=== PATIENT | male | born 1975 | race Caucasian/White ===

== ENCOUNTER 2024-08-19 09:01 | Inpatient (IN) ==
--- NOTE | 2024-08-19 09:21 | Emergency Department Note ---
Impression & Plan Closed fracture dislocation of left ankle joint ED Provider Note HISTORY OF PRESENT ILLNESS: Patient is a 49-year-old male presenting with left ankle pain and deformity. Patient reports he was walking around his truck in the bad weather when he slipped and fell and he felt his ankle pop and heard a crack. He states that he was unable to bear weight after the accident. He denies striking his head or loss of consciousness. He is not on any anticoagulation. Reports his tetanus is up-to-date. Currently complaining of left ankle pain that he rates a 10 out of 10. Denies any numbness or tingling in the toes. ROS: as above PHYSICAL EXAM: Constitutional: Patient appears in no acute distress. Obese HENT: Head: Normocephalic and atraumatic. Eyes: EOMI, PERRL Mouth/Throat: Mucous membranes moist. Neck: Trachea midline. Neck supple. Cardiovascular: RRR, No murmurs, rubs or gallops. Intact distal pulses. Pulmonary/Chest: No respiratory distress. Breath sounds clear and equal bilaterally. No wheezes or rales. Abdominal: Abdomen soft, no tenderness, rebound or guarding. Musculoskeletal: EXTREMITY= LLE - Deformity: Left ankle has obvious deformity - Skin / Wounds: Diffuse ecchymosis and swelling to the medial part of the ankle. No open wounds - Pain: Ankle is diffusely tender to palpation. - Sensory: SILT throughout (S/S/T/DP/SP nerve distributions) - Motor: Patient is able to wiggle toes. Able to flex and extend at the knee. Unable to range ankle secondary to dislocation. - Vascular: Brisk cap refill, palpable pulses (2+ DP/PT) Skin: Warm and dry. No rash, erythema, pallor or cyanosis Psychiatric: Appropriate mood and affect for situation. Neurological: Alert and keenly responsive. CN II-XII grossly intact, moving all extremities equally and fully. MDM: - Vitals signs showed hypertension. - History obtained via patient. History as above. - Chronic conditions affecting care: HTN - Differential diagnoses include, but are not limited to: ankle fracture; ankle dislocation; contusion; vascular injury - Order placed for continuous cardiac monitoring. At this time, monitor showed rate of 60 bpm with normal sinus rhythm, per my interpretation. - External medical records reviewed. Podiatry office visit note dated 01/19/2024 was reviewed. Patient was seen for an acute blister on his right foot. - Xray left ankle showed bimalleolar fracture and dislocation of ankle, per my interpretation. - Patient initially given 1 mg IV Dilaudid for pain management. He was given an additional 1 mg IV Dilaudid for reduction of his ankle dislocation. Ankle was reduced by myself, please see procedure note below. Splint was applied by myself and zyglo technician. Please see procedure note below. - Laboratory workup interpreted by myself showed normal WBC; stable electrolytes; elevated glucose (175) - Post-reduction x-ray showed improved alignment of patient's bimalleolar fracture and dislocation. - Discussed case with orthopedist longwall headgate operator, Dr. Haji, at 11:11. Reports that patient will need an ORIF or Ex-Fix. Requested the patient be admitted to medicine for blood sugar management. Recommended strict strict elevation and n.p.o. for now. Plan for surgical intervention either later today or tomorrow per surgery. - EKG interpreted by myself showed normal sinus rhythm. Rate 82 bpm. QT 396. No acute ischemic changes. - Preop CXR ordered and negative for obvious pneumonia, per my interpretation. - Discussion was had with case filler about patient's case and need for admission - Hospitalist, Dr. Aranda, consulted for admission - Patient admitted to [facility] for further evaluation and management. PROCEDURES: 1. Ankle Dislocation Reduction Indication: ankle fracture dislocation Verbal consent obtained. Risks and benefits were explained with the usual customary discussion. A time out was taken. Neurovascular examination before the procedure revealed patient able to wiggle toes and intact PT pulse and good cap refill in all 5 toes. The left ankle was reduced by placing the patient's supine and applying countertraction with his knee bent at 90 degrees. Gentle downward traction on the foot was obtained with manipulation medially towards the medial malleolus. This resulted in an easy reduction without complication. Neurovascular examination after the procedure revealed patient able to wiggle toes and intact PT pulse and good cap refill in all 5 toes. The patient had significant pain relief and tolerated the procedure well. 2. Splinting Indication: ankle fracture/dislocation Verbal consent obtained. Risks and benefits were explained with the usual customary discussion. The injured extremity was identified. The patient was prepped and measured for the placement of a posterior short leg and ankle stirrup ortho-glass splint. Splint applied in the standard fashion over a layer of webril and secured using an elastic bandage. Set into a position of function. Normal neurovascular status after placement verified by me. The patient tolerated the procedure well and the care of the splint was discussed with the patient/family. No complications. 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 Chronic anemia Hypokalemia Hypertension Chronic kidney disease, stage 3a Medical History Morbid obesity with BMI of 40.0-44.9, adult DIONNE (acute kidney injury) Increased anion gap metabolic acidosis Ganglion cyst Right radial head fracture Chronic constipation Depression Surgical History History of colonoscopy H/O spinal fusion History of tooth extraction History of surgical procedure on eye proper using laser Family History Mother Diabetes Family history of diabetes mellitus Endometrial cancer Aunt Breast cancer Endometrial cancer Grandfather (Paternal) Stroke Father Hypertension Other No family history of adverse response to anesthesia Denies family history of Ovarian cancer Prostate cancer Myocardial infarction Lung cancer Colorectal cancer Social History Smoking Status: Never smoker Second Hand Exposure: No (mother smoked); Do You Dip or Chew Tobacco: No; Hx Alcohol Use: No Hx Substance Use: No Preferred Language: [place] Communication Ability: Effective Visual Impairment: No Limitations Hearing Ability: Normal Yarn Spinner Required: No Beliefs That Will Affect Care: None marital status: Single Current Living Situation: Alone current occupational status: employed current occupation: [employer] Feels Safe at Home: Yes Childhood Exposure to Second-Hand Smoke: Yes caffeine: Yes (occasional) Dental Care, Regularly: Yes Physical Activity Frequency: Daily Physical Activity Frequency Comment: not so much now in winter Seatbelt Use: always Sunscreen Use: Yes Assistive Devices: None Allergies Allergies Allergy/AdvReac Type Severity Reaction Status Date / Time Sulfa (Sulfonamide Allergy Mild Rash Verified 12/27/23 09:25 Antibiotics) Home Meds Home Medications Medication Instructions Recorded Confirmed No Known Home Medications 08/19/24 08/19/24 Results & Data (ED) Vital Signs Vital Signs - 24 hr 08/19/24 09:06 08/19/24 10:37 08/19/24 10:39 Temperature 36.4 C L Temperature Source Oral Pulse Rate 75 60 Pulse Rate [Left Finger] 85 Respiratory Rate 18 16 Respiratory Effort / Characteristics Non-Labored Respiratory Depth Normal Respiratory Pattern Regular Blood Pressure 174/106 H Blood Pressure [Left Arm] 181/98 H Blood Pressure Mean 128 Blood Pressure Mean [Left Arm] 125 Pulse Oximetry 98 98 Oxygen Delivery Method Room Air Sepsis Recent Fever Within 48 Hours No Sepsis New/Unexplained Change in Mental Status N/A Sepsis Action Taken by Nursing No Action Required Laboratory Data 08/19/24 09:07 08/19/24 09:07 Lab Results 08/19/24 Range/Units 09:07 WBC 7.54 (4.8-10.8) K/ul RBC 5.29 (4.70-6.10) M/uL Hgb 14.8 (14.0-18.0) g/dl Hct 44.0 (42.0-52.0) % MCV 83.2 (80.0-100.0) fL MCH 28.0 (25.0-34.0) pg MCHC 33.6 (32.0-36.0) g/dL RDW Std Deviation 43.3 (36.4-46.3) fL RDW Coeff of Ruben 14.3 (11.5-14.5) % Plt Count 245 (130-400) K/uL MPV 10.3 (9.4-12.4) fL Immature Gran % (Auto) 0.9 % Neut % (Auto) 56.0 % Lymph % (Auto) 30.9 % [place] % (Auto) 9.4 % Eos % (Auto) 2.1 % Baso % (Auto) 0.7 % Neut # (Auto) 4.22 (1.40-6.50) K/uL Lymph # (Auto) 2.33 (1.20-3.40) K/uL [place] # (Auto) 0.71 H (0.11-0.59) K/uL Eos # (Auto) 0.16 (0.00-0.50) K/uL Baso # (Auto) 0.05 (0.00-0.20) K/uL Immature Gran # (Auto) 0.07 (0.01-0.20) K/uL Sodium 138 (136-145) mmol/L Potassium 3.8 (3.5-5.1) mmol/L Chloride 108 H (98-107) mmol/L Carbon Dioxide 22 (21-32) mmol/L Anion Gap 8 (3-11) BUN 24 H (6-23) mg/dl Creatinine 1.37 (0.6-1.4) mg/dl Est Cr Clr Drug Dosing 85.2 ml/min eGFR 64.03 BUN/Creatinine Ratio 17.5 (10-20) Glucose 175 H (70-99(Fasting)) mg/dl Calcium 8.7 (8.6-10.3) mg/dl Total Bilirubin 0.4 (0.2-1.0) mg/dl AST 18 (13-39) U/L ALT 27 (7-52) U/L Alkaline Phosphatase 56 (34-104) U/L Total Protein 7.2 (6.0-8.3) gm/dl Albumin 4.6 (3.4-5.0) gm/dl Globulin 2.6 (2.5-4.0) gm/dl Albumin/Globulin Ratio 1.8 (0.9-2) Administered Medications Discontinued Medications Fentanyl Citrate (Fentanyl Citrate Pf 100 Mcg/2 Ml Vial) 50 mcg IV NOW STA Stop: 08/19/24 09:21 Last Admin: 08/19/24 09:35 Dose: Not Given Documented By: ROSALBA Hydromorphone HCl (Hydromorphone Inj 1 Mg/Ml Syringe) 1 mg IV NOW STA Stop: 08/19/24 09:23 Last Admin: 08/19/24 09:31 Dose: 1 mg Documented By: ROSALBA Hydromorphone HCl (Hydromorphone Inj 1 Mg/Ml Syringe) 1 mg IV NOW STA Stop: 08/19/24 10:10 Last Admin: 08/19/24 10:33 Dose: 1 mg Documented By: ROSALBA Imaging Data Radiologist's Impression: Ankle X-Ray 08/19/24 09:12 XR ankle LT 2V CLINICAL HISTORY: L ankle pain s/p fall TECHNIQUE: 3 views of the left ankle were obtained. Comparison: None available at the time of this dictation. FINDINGS: Fracture dislocation of the ankle is seen with associated soft tissue swelling. There are fractures of the distal fibula and medial malleolus complete dislocation of the tibiotalar joint. Soft tissue swelling is seen about the ankle. IMPRESSION: Fracture dislocation of the ankle with associated soft tissue swelling. ACT 112: Negative or not required by law. Electronically signed by: Joao Cross M.D. 08/19/2024 10:11 AM Ankle X-Ray 08/19/24 10:38 XR ankle LT 2V CLINICAL HISTORY: post reduction COMPARISON: Left ankle radiographs August 19, 2024 at 9:53 AM. FINDINGS: Overlying cast is noted. Alignment of the distal left tibial and fibular fractures has improved. Specifically, there is an oblique nondisplaced fracture of the distal shaft of the left fibula which extends to the level of the tibiotalar joint. There is also a displaced medial malleolar fracture. Tibiotalar alignment has also improved. Talar dome is intact. IMPRESSION: Interval improvement in alignment of the left ankle bimalleolar fracture/dislocation deformity. ACT 112: Negative or not required by law. Electronically signed by: Latrell Winston M.D. 08/19/2024 11:22 AM Discharge Plan Visit Data Chief Complaint: Ankle Pain Stated Complaint: SLIPPED AND FELL, L ANKLE PAIN ED Provider: Cesia Orta Discharge Problem: Closed fracture dislocation of left ankle joint Forms Stand Alone Forms: [facility] fitaborate Prescriptions Prescriptions: No Action No Known Home Medications Referrals Referrals: Lei Cooper CRNP [Primary Care Provider] -
[2024-08-19] MEDS: HYDROmorphone INJ 1 MG/ML SYRINGE IV STA ×2 (09:31→10:33)
[2024-08-19] MEDS: fentaNYL citrate PF 100 MCG/2 ML VIAL IV STA (09:35)
--- OUTSIDE RECORDS SUMMARY | 2024-08-19 09:39 | External Medical Summary | Summary of Care ---
Author Name Unknown Organization [facility] Address [address] [place] [address] Phone [phone] Care Team Providers Care Art Objects Repairer Name Role Phone Unavailable Primary Care Provider Unavailabl e Encounter Details Date Type Department Care Team (Late st Contact Info) Description 03/18/2024 Orders Only Outcomes Research Department [address] [place] [address] Beckie Babcock CHRA [facility] Other*[id number] Allergies Active Allergy Reactions Criticality Noted Date Comments Sulfa Antibiotics 11/10/1998 rash documented as of this encounter (statuses as of 03/18/2024) Medications Medication Sig Dispensed Refills Start Date End Date Status losartan-hctz 50-12.5 mg per tab (HYZAAR) 50-12.5 MG per tabletIndications:Essen tial hypertension with goal blood pressure less than 140/90 TAKE 1 TABLET BY MOUTH EVERY DAY 30 Tab 5 12/11/2017 Active documented as of this encounter (statuses as of 03/18/2024) Active Problems Problem Noted Date Diagnosed Date Kidney disease, chronic, stage III (GFR 30-59 ml /min) 08/04/2017 Essential hypertension with goal blood pressure less than 140/90 09/23/2013 documented as of this encounter (statuses as of 03/18/2024) Resolved Problems Problem Noted Date Diagnosed Date Resolved Date SCAR & FIBROSIS OF SKIN 09/18/200205/15 2ND DEG BURN MULT SITE 09/18/200206/09 documented as of this encounter (statuses as of 03/18/2024) Social History Tobacco Use Types Packs/Day Years Used Date Smoking Tobacco: Never Smokeless Tobacco: Never Alcohol Use Standard Drinks/Week Comments No 0 (1 standard drink = 0.6 oz pur e alcohol) Utilities Answer Date Recorded Do you have trouble paying y our heating, water, or electric bill? (Adult - for ages 18 years and over) Not on file 01/30/2024 Is your family able to pay t he heat, water, or electric bill? (Household - for ages 0-17 years) Not on file 01/30/2024 Does your family have access to good internet? (Household - for ages 0-17 years) Not on file 01/30/2024 Social Connections Answer Date Recorded How often do you feel lonely or isolated from those around you? (Adult - for ages 18 years and over) Not on file 01/30/2024 Sex and Gender Information Value Date Recorded Sex Assigned at Not on file Gender Identity Not on file Sexual Orientation Not on file documented as of this encounter Plan of Treatment Scheduled Orders Name Type Priority Associated Diagnoses Orde r Schedule MYCODE SUBSEQUENT ADULT Lab Routine [facility] Other*[id number] Every 6 Months for 2 Occurrences starting 03/18/2024 until 04/07/2025 Health Maintenance Due Date Last Done Comments HIV Screening 1992 Hepatitis B Vaccine (1 of 3 - 19+ 3-dose series) 1996 DTaP,Tdap,and Td Vaccines (1 - Tdap) 02/21/2002 02/20/2002 GFR 02/02/2018 08/04/2017, 05/15, 06/09/2016, Additional history exists Depression Screening 06/09/2018 06/09/2017 Albumin/Creatinine Ratio 08/04/2018 08/04/2017, 05/15 CKD HGB USE SMARTSET 31629 08/04/2018 08/04/2017, CKD PHOS USE SMARTSET [id number] 08/04/2018 08/04/2017 Cologuard 2022 Colonoscopy 2022 Colorectal Cancer Screening 2022 Fecal Occult Blood Test 2022 Sigmoidoscopy 2022 Lipid Panel 06/09/2022 06/09/2017, 04/12/2013 COVID-19 Vaccine (1 - season) 2023 Influenza Vaccine (FLU shot) (#1) 2024 07/18/2022 Hepatitis C Screening Completed 08/04/2017 HPV (Gardasil) Vaccine Aged Out No lo nger eligible based on patient's age to complete this topic MENINGOCOCCAL (MENACTRA/MENVEO) Aged Out No longer eligible based on patient's age to complete this topic Pneumococcal Vaccine: Pediatrics (0 to 5 Years) and At-Risk Patients (6 to 64 Years) Aged Out No longer eligible based on patient's age to complete this topic documented as of this encounter Medical Devices Not on filedocumented as of this encounter Visit Diagnoses Diagnosis [facility] Other*[id number] documented in this encounter
[2024-08-19 09:55] LABS: Basophils # (auto) 0.05 K/uL (0.00-0.20); Basophils % (auto) 0.7 %; Eosinophils # (auto) 0.16 K/uL (0.00-0.50); Eosinophils % (auto) 2.1 %; Hemoglobin 14.8 g/dl (14.0-18.0); Immature Granulocytes # (auto) 0.07 K/uL (0.01-0.20); Immature Granulocytes % (auto) 0.9 %; Lymphocytes # (auto) 2.33 K/uL (1.20-3.40); Lymphocytes % (auto) 30.9 %; Mean Corpuscular Hgb Conc 33.6 g/dL (32.0-36.0); Mean Corpuscular Volume 83.2 fL (80.0-100.0); Mean Platelet Volume 10.3 fL (9.4-12.4); Monocytes # (auto) 0.71 K/uL (0.11-0.59); Monocytes % (auto) 9.4 %; Neutrophils # (auto) 4.22 K/uL (1.40-6.50); Platelet Count 245 K/uL (130-400); RDW Coefficient of Variation 14.3 % (11.5-14.5); RDW Standard Deviation 43.3 fL (36.4-46.3); Red Blood Count 5.29 M/uL (4.70-6.10); White Blood Count 7.54 K/ul (4.8-10.8)
[2024-08-19 10:06] LABS: Albumin Globulin Ratio 1.8 (0.9-2); Albumin Level 4.6 gm/dl (3.4-5.0); BUN Creatinine Ratio 17.5 (10-20); Bilirubin,Total 0.4 mg/dl (0.2-1.0); Calcium 8.7 mg/dl (8.6-10.3); Creatinine Clr Calc Pharmacy 85.2 ml/min; Globulin 2.6 gm/dl (2.5-4.0); Potassium 3.8 mmol/L (3.5-5.1); Total Protein 7.2 gm/dl (6.0-8.3)
--- NOTE | 2024-08-19 10:12 | XRay Report ---
XR ankle LT 2V CLINICAL HISTORY: L ankle pain s/p fall TECHNIQUE: 3 views of the left ankle were obtained. Comparison: None available at the time of this dictation. FINDINGS: Fracture dislocation of the ankle is seen with associated soft tissue swelling. There are fractures o f the distal fibula and medial malleolus complete dislocation of the tibiotalar joint. Soft tissue sw elling is seen about the ankle. IMPRESSION: Fracture dislocation of the ankle with associated soft tissue swelling. ACT 112: Negative or not required by law. Electronically signed by: Joao Cross M.D. 08/19/2024 10:11 AM
--- NOTE | 2024-08-19 11:23 | XRay Report ---
XR ankle LT 2V CLINICAL HISTORY: post reduction COMPARISON: Left ankle radiographs August 19, 2024 at 9:53 AM. FINDINGS: Overlying cast is noted. Alignment of the distal left tibial and fibular fractures has imp roved. Specifically, there is an oblique nondisplaced fracture of the distal shaft of the left fibula which extends to the level of the tibiotalar joint. There is also a displaced medial malleolar fract ure. Tibiotalar alignment has also improved. Talar dome is intact. IMPRESSION: Interval improvement in alignment of the left ankle bimalleolar fracture/dislocation defo rmity. ACT 112: Negative or not required by law. Electronically signed by: Latrell Winston M.D. 08/19/2024 11:22 AM
--- NOTE | 2024-08-19 11:28 | History & Physical Report ---
Date of Service August 19, 2024 Assessment & Plan (1) Closed fracture dislocation of left ankle joint: Plan: s/p mechanical fall slipping in snow 08/19 hemodynamically and neurovascularly intact Pain adequately controlled Patient is medically cleared for surgery orthopedics consulted last meal 08/18/24 @2000 NPO type and screen ordered EKG NSR, CXR negative for acute findings Tylenol + continue Dilaudid for breakthrough pain control likely to need PT/OT postoperatively (2) Hypertension: Plan: history of hypertension previously on amlodipine 10 Mg, losartan 100 Mg, chlorthalidone 25 Mg - quit taking this a few months ago BP mildly elevated on admission, suspect secondary to pain Monitor closely (3) Chronic kidney disease, stage 3a: Plan: Baseline creatinine 1.23, GFR 70 patient stated that he does not follow with nephrology renal function stable on admission Avoid nephrotoxic agents including NSAIDs (4) Prediabetes: Plan: A1c 07/2022 6.3 A1c with a.m. labs Will add loose sliding scale with correction factor of 30, defer carb ratio at this time type II DM diet postoperatively (5) Chronic anemia: Plan: stable, no medications monitor H&H post-op (6) Morbid obesity with BMI of 40.0-44.9, adult: Plan Patient is a 49-year-old male with a past medical history of hypertension, stage IIIa CKD, anemia, prediabetes, vitamin B12 deficiency, not currently on any home medications. He is being admitted for a left ankle fracture that will require operative management by orthopedics. Orthopedics team consulted. VTE ppx: SCDs; defer chemical PPx to orthopedics team Diet: NPO planning for surgical management; can have T2DM post-operatively Dispo: med surg Admission and Anticipated Discharge Date Admission Date: 08/19/24 History of Present Illness Chief Complaint: ankle pain Primary Care Provider: SUSSY Pitts Patient is a 49-year-old male with a past medical history of hypertension, stage IIIa CKD, anemia, prediabetes, vitamin B12 deficiency, not currently on any home medications. He is being admitted for a left ankle fracture that will require operative management by orthopedics. Orthopedics team consulted. Patient seen at bedside and stated that he works for [employer] and got called into work to pull out today. When he was trying to get into his truck he slipped on the snow and heard a pop and crack in his ankle. When he was laying there his pain was a 1/10. When he tried to stand up and bear weight on the foot, his pain was severe. He is up-to-date on his tetanus vaccine. He denies head strike or loss of consciousness; denies dyspnea, chest pain, dizziness prior to fall. He is not on a blood thinner. His last meal was last night at 7 or 8 PM in which she had a hoagie. He has not had anything to drink today. He is planning to grab something to eat while he was on the job today. He states his pain is currently 0 out of 10 after IV pain medication. Patient denies headache, dizziness, lightheadedness, dyspnea, chest pain, abdominal pain, nausea, vomi ting, diarrhea, numbness, tingling. When discussing his past medical history, he stated he used to be on amlodipine, losartan, and chlorthalidone but stopped taking these a few months ago. He also stated he used to have kidney disease but has been stable and does not follow with nephrology. He does not use nicotine products or drink alcohol. He denies previous VTE. He does not use oxygen at baseline, no CPAP/BiPAP. He did not take any home medications this morning because he is not on any. He occasionally takes [id number] Prilosec. He wishes to be full code at this time. Allergies Allergy/AdvReac Type Severity Reaction Status Date / Time Sulfa (Sulfonamide Allergy Mild Rash Verified 12/27/23 09:25 Antibiotics) Home Medications Medication Instructions Recorded Confirmed Type No Known Home Medications 08/19/24 08/19/24 History Past Med/Surg History Problem List (Updated 08/19/24 @ 11:49 by Sujata Antonio PA-C) Morbid obesity with BMI of 40.0-44.9, adult Closed fracture dislocation of left ankle joint (Acute) Dyslipidemia Prediabetes History of colon polyps Vitamin D deficiency (Chronic) Obesity Myelopathy concurrent with and due to spinal stenosis of cervical region Right sided numbness (Acute) 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 Chronic anemia Hypokalemia Hypertension Chronic kidney disease, stage 3a Medical History Morbid obesity with BMI of 40.0-44.9, adult DIONNE (acute kidney injury) Increased anion gap metabolic acidosis Ganglion cyst Right radial head fracture Chronic constipation Depression Surgical History History of colonoscopy H/O spinal fusion History of tooth extraction History of surgical procedure on eye proper using laser Family History Mother Diabetes Family history of diabetes mellitus Endometrial cancer Aunt Breast cancer Endometrial cancer Grandfather (Paternal) Stroke Father Hypertension Other No family history of adverse response to anesthesia Denies family history of Ovarian cancer Prostate cancer Myocardial infarction Lung cancer Colorectal cancer Social History (Reviewed 12/27/23 @ 09: by GINNY Iraheta) Smoking Status: Never smoker Second Hand Exposure: No (mother smoked); Do You Dip or Chew Tobacco: No; Hx Alcohol Use: No Hx Substance Use: No Preferred Language: Japanese Communication Ability: Effective Visual Impairment: No Limitations Hearing Ability: Normal Car Wiper Required: No Beliefs That Will Affect Care: None marital status: Single Current Living Situation: Alone current occupational status: employed current occupation: [employer] Feels Safe at Home: Yes Childhood Exposure to Second-Hand Smoke: Yes caffeine: Yes (occasional) Dental Care, Regularly: Yes Physical Activity Frequency: Daily Physical Activity Frequency Comment: not so much now in winter Seatbelt Use: always Sunscreen Use: Yes Assistive Devices: None Review of Systems Review of Systems: see HPI Physical Exam Physical Exam: The patient is awake, alert and oriented 3, obese, normocephalic and atraumatic, in no acute distress. Non-toxic appearing. HEENT- EOMI, mucous membranes moist. Hearing grossly intact. Heart-normal S1 and S2. No murmurs, rubs or gallops. Lungs-clear bilaterally, no respiratory distress, no accessory muscle use. Abdomen-normal bowel sounds and soft. No ascites noted. Non-tender. Extremities- no clubbing, cyanosis, or edema. Left ankle splint in place. Neurovascularly intact to right LE. Psychiatric-normal affect. Results & Data Results & Data Vital Signs (Past 12 Hours) Vital Signs Temp Pulse Pulse Resp BP BP Pulse Ox 08/19/24 10:39 60 08/19/24 10:37 85 16 181/98 H 98 08/19/24 09:06 36.4 C L 75 18 174/106 H 98 O2 Del Method 08/19/24 10:39 08/19/24 10:37 08/19/24 09:06 Room Air Laboratory Results Reviewed CBC, CMP Diagnostic Findings reviewed ankle XR and CXR Medications Administered ED: Dilaudid 2g ECG Additional Comments: NSR Code Status & VTE Plan Code Status full VTE Prophylaxis Plan VTE Prophylaxis will be ordered: Yes Supervising Physician Co-Signing Physician Notes The patient was seen by me. Orthopedic consultation pending. The chart was reviewed. Case discussed with BIANCA Gardner. Agree with assessment and plan PG Care Time/CCT Total # of Minutes Spent Total Time Spent with Patient: Total time spent is greater than 50% in coordination of care (as documented) at patient's floor/unit and/or counseling patient: Coding Level of Care Code 85055 INT INP/OBS CARE 75MIN Diagnoses Closed fracture dislocation of left ankle joint S82.892A Hypertension I10 Chronic kidney disease, stage 3a N18.31 Prediabetes R73.03 Chronic anemia D64.9 Morbid obesity with BMI of 40.0-44.9, adult E66.01; Z68.41
--- NOTE | 2024-08-19 12:13 | XRay Report ---
XR chest 1V portable CLINICAL HISTORY: Preoperative evaluation. COMPARISON STUDY: Chest radiograph August 10, 2020. FINDINGS: Postoperative findings within the cervical spine are incidentally noted. Lung volumes are n ormal. Lungs are clear. There is no pneumothorax or pleural effusion. Cardiac size is normal. Mediast inal contours are normal. There is no evidence for pulmonary edema. IMPRESSION: No acute cardiopulmonary findings. ACT 112: Negative or not required by law. Electronically signed by: Latrell Winston M.D. 08/19/2024 12:12 PM
[2024-08-19] MEDS ORDERED: DEXTROSE 50% 50 ML SYRINGE IV PRN (13:27)
[2024-08-19] MEDS ORDERED: GLUCAGON FOR INJ 1 MG VIAL SQ PRN (13:27)
[2024-08-19] MEDS ORDERED: GLUCOSE 10 TAB/TUBE PO PRN (13:27)
[2024-08-19] MEDS ORDERED: HYDROmorphone INJ 0.5 MG/0.5 ML SYR IV PRN ×3 (13:27→19:57)
[2024-08-19] MEDS ORDERED: ONDANSETRON INJ 2 MG/ML 2 ML VIAL IV PRN (13:27)
[2024-08-19] MEDS ORDERED: CARBOHYDRATES FOR HYPOGLYCEMIA PO PRN (13:27)
[2024-08-19] MEDS ORDERED: GLUCOSE 40% GEL 15 GM TUBE PO PRN (13:27)
[2024-08-19] MEDS ORDERED: DOCUSATE SODIUM 100 MG CAP PO PRN (13:27)
[2024-08-19] MEDS ORDERED: ACETAMINOPHEN 1,000 MG/100 ML VIAL IV PRN (13:27)
[2024-08-19] MEDS ORDERED: ROPIVACAINE 0.5% 5 MG/ML 30 ML VIAL ONE (14:17)
[2024-08-19] MEDS ORDERED: Nursing to Pharmacy Communication SCH ×2 (15:00→20:30)
[2024-08-19] MEDS ORDERED: ONDANSETRON INJ 2 MG/ML 2 ML VIAL ONE (15:43)
[2024-08-19] MEDS ORDERED: MIDAZOLAM HCL 1 MG/ML 2ML VIAL ONE (15:43)
[2024-08-19] MEDS ORDERED: LIDOCAINE 2% 2 ML VIAL/AMP(20MG/ML) INFIL ONE (15:43)
[2024-08-19] MEDS ORDERED: DEXAMETHASONE SOD INJ 4 MG/ML VIAL ONE (15:43)
[2024-08-19] MEDS ORDERED: PROPOFOL IV EMULSION 10 MG/ML 20 ML VIAL IV ONE (15:43)
[2024-08-19] MEDS ORDERED: fentaNYL citrate PF 100 MCG/2 ML VIAL ONE ×2 (15:43→18:22)
--- NOTE | 2024-08-19 15:50 | Anesthesiology Consultation ---
Date of Service August 19, 2024 Assessment & Plan Chart Review Chart Review: Acceptable Risk for Surgery and Patient NOT seen in Pre Admission Testing Consults Requested none History Surgery Operation Date: 08/19/24 08:20 Proposed Procedures p Left Ankle Open Reduction Internal Fixation, - Wilson Haji MD s Possible External Fixator - Wilson Haji MD Height/Weight Height: 5 ft 5 in Weight: 133.7 kg Allergies Allergy/AdvReac Type Severity Reaction Status Date / Time Sulfa (Sulfonamide Allergy Mild Rash Verified 12/27/23 09:25 Antibiotics) Medications Home Medications Medication Instructions Recorded Confirmed Last Taken No Known Home Medications 08/19/24 08/19/24 Unknown Past Medical History Medical History Morbid obesity with BMI of 40.0-44.9, adult DIONNE (acute kidney injury) Increased anion gap metabolic acidosis Ganglion cyst Right radial head fracture Chronic constipation Depression Past Family History Family History Mother Diabetes Family history of diabetes mellitus Endometrial cancer Aunt Breast cancer Endometrial cancer Grandfather (Paternal) Stroke Father Hypertension Other No family history of adverse response to anesthesia Denies family history of Ovarian cancer Prostate cancer Myocardial infarction Lung cancer Colorectal cancer Past Surgical History Surgical History History of colonoscopy H/O spinal fusion History of tooth extraction History of surgical procedure on eye proper using laser Social History Smoking Status: Never smoker Do You Dip or Chew Tobacco: No Hx Alcohol Use: No Hx Substance Use: No substance use type: does not use Physical Exam Vital Signs Last Vital Signs Temp 36.7 C 08/19/24 13:49 Pulse 88 08/19/24 13:49 Resp 17 08/19/24 13:49 BP 188/95 H 08/19/24 13:49 Pulse Ox 94 08/19/24 13:49 O2 Del Method Room Air 08/19/24 13:49 Testing Laboratory Results 08/19/24 09:07 08/19/24 09:07 Blood Type A Positive 08/19/24 12:20 Antibody Screen NEGATIVE 08/19/24 12:20
--- NOTE | 2024-08-19 15:51 | Orthopedic Consultation ---
Date of Service August 19, 2024 Assessment & Plan (1) Closed fracture dislocation of left ankle joint: NPO. Surgery today with Dr Haji for ORIF vs external fixation of left ankle fracture. Procedures explained to him including risks, benefits, alternatives to surgery. Consent obtained. History of Present Illness Reason for Consultation: . Requesting Physician: . Attending Physician: Oziel Aranda MD . Michael is a 49 year old patient admitted today following a left ankle fracture/dislocation. This happened at work this morning. 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 He had immediate pain and deformity. He underwent a closed reduction in the ER. No other injuries at this time. No pain in his ankle prior to this episode. No numbness or tingling. 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 Lennon--normal ROM History of tooth extraction wisdom teeth History of surgical procedure on eye proper using laser bilt eyes "for vitreous floaters" Family History Mother Diabetes Family history of diabetes mellitus Endometrial cancer Aunt Breast cancer Endometrial cancer Grandfather (Paternal) Stroke Father Hypertension Other No family history of adverse response to anesthesia Denies family history of Ovarian cancer Prostate cancer Myocardial infarction Lung cancer Colorectal cancer Social History Smoking Status: Never smoker Second Hand Exposure: No (mother smoked); Do You Dip or Chew Tobacco: No; Hx Alcohol Use: No Hx Substance Use: No Preferred Language: Cape Verdean Communication Ability: Effective Visual Impairment: No Limitations Hearing Ability: Normal Academic Vice President Required: No Beliefs That Will Affect Care: None marital status: Single Current Living Situation: Alone current occupational status: employed current occupation: [employer] Other Information That Helps Us Care for You: No Feels Safe at Home: Yes Safety Concerns: Feels Safe At This Time Childhood Exposure to Second-Hand Smoke: Yes caffeine: Yes (occasional) Dental Care, Regularly: Yes Physical Activity Frequency: Daily Physical Activity Frequency Comment: not so much now in winter Seatbelt Use: always Sunscreen Use: Yes Assistive Devices: None Review of Systems All systems reviewed & are unremarkable except as noted in HPI & below. Physical Exam . alert and oriented. NAD Left ankle: splint in place and not removed. Able to move toes appropriately. Brisk refill and sensation to toes intact to touch. Results & Data Results & Data Laboratory Results . Diagnostic Findings .xrays of the left ankle show a fracture/dislocation of the ankle, involving the medial malleolus and distal fibula. Post reduction xrays show improved alignment but still with lateral displacement PG Care Time/CCT Total # of Minutes Spent Total Time Spent with Patient: Total time spent is greater than 50% in coordination of care (as documented) at patient's floor/unit and/or counseling patient: Supervising Physician Co-Signing Physician Notes The patient was independently evaluated and counseled by me. I agree with the physician's general surgery physician assistant's note in its entirety. Informed consent was received left ankle fracture open reduction internal fixation or external fixation. I reviewed the risk, benefits. The risks were discussed including, but are not limited to, infection, nerve or vessel, arthrofibrosis, posttraumatic arthritis, chronic pain or pain syndromes, blood clots,, malunion, symptomatic implants, and complications related anesthesia. He asked appropriate questions, demonstrated a good understanding, and wants to proceed with surgery as described. Coding Level of Care Code 21538 IN/OBS CONSULT LVL 4,60M (57 - DECISION FOR SURGERY) Diagnoses Closed fracture dislocation of left ankle joint S82.892A
[2024-08-19] MEDS ORDERED: GLYCOPYRROLATE 0.2 MG/ML VIAL ONE (16:22)
[2024-08-19] MEDS ORDERED: INSULIN ASPART PER UNIT CHARGE SC SCH (16:30)
[2024-08-19] MEDS: ceFAZolin 3000MG/72.5 ML BAG IV ONE (16:49)
[2024-08-19] MEDS ORDERED: DexMEDEtomidine HCL IV 100 MCG/ML VIAL IV ONE (16:56)
--- NOTE | 2024-08-19 19:20 | Anesthesiology Progress Note ---
Date of Service August 19, 2024 Anesthesia Post Procedure Vital Signs Vital Signs: Temp Pulse Pulse Pulse Resp BP BP 08/19/24 19:15 98 H 16 168/90 H 08/19/24 19:04 36.5 C 101 H 14 147/96 H 08/19/24 15:50 36.5 C 92 H 20 174/105 H 08/19/24 13:49 36.7 C 88 17 08/19/24 12:42 85 16 149/88 H 08/19/24 10:39 60 08/19/24 10:37 85 16 181/98 H 08/19/24 09:06 36.4 C L 75 18 174/106 H BP Pulse Ox O2 Del Method O2 Flow Rate 08/19/24 19:15 94 Room Air 08/19/24 19:04 98 Oxymask 6 08/19/24 15:50 99 Room Air 08/19/24 13:49 188/95 H 94 Room Air 08/19/24 12:42 95 Room Air 08/19/24 10:39 08/19/24 10:37 98 08/19/24 09:06 98 Room Air Pain Intensity Left Ankle: Pain Intensity: 1 Transfer of Care Handoff Completed per policy Notes Mental Status: alert / awake / arousable Patient Amnestic to Procedure: Yes Nausea / Vomiting: adequately controlled Pain: adequately controlled Airway Patency, RR, SpO2: stable & adequate BP & HR: stable & adequate Hydration State: stable & adequate Anesthetic Complications: no major complications apparent and Pt Satisfied with anesthetic care
--- NOTE | 2024-08-19 19:36 | Operative Report ---
PG Post Operative Report Pre & Post Diagnosis Operation Date: 08/19/24 08:20 Pre-Op Diagnosis: Closed fracture dislocation of left ankle joint Post-Op Diagnosis: Closed fracture dislocation of left ankle joint I identified the patient and participated in the time-out.: Yes Procedure Operation Date: 08/19/24 08:20 Actual Procedures p Left Ankle Open Reduction Internal Fixation Medial and Lateral Malleolus (Left) - Wilson Haji MD Complexity modifier: Patient BMI equal to 49. The body habitus complicated the approach and fixation, requiring additional fixation and exposure techniques, extending the total OR time by at least 30 minutes beyond the routine ankle fracture surgery. Surgeon Wilson Haji MD Fusing Machine Feeder Alphonso Miguel PA-C Estimated Blood Loss 15 Findings See Below All Synthes implants: Minimally comminuted medial malleolus fracture stable as with 2 Synthes 4.0 mm partially-threaded cannulated screws of 50 mm length. Spiral oblique metadiaphyseal fibula fracture directly reduced and stabilized using a single 3.5 mm interfragmentary lag screw 20 mm length, 7hole shaft 2.7/3.5 fibular locking plate, 3.5 mm cortical screws (14, 16 mm), 2.7 mm locking screws 14mm x2, 16, 18 x2), and 3.5 mm locking screws (16 mm X2). Specimens none Anesthesia Type General Regional Complications none Disposition Accompanied Patient To Recovery: No Disposition: Recovery Room Indications 49-year-old male sustained a twisting ankle injury today on the job, resulting immediate pain and deformity and inability to bear weight. He was brought to the emergency room where an ankle fracture dislocation was diagnosed and managed with a closed reduction. The post reduction x-rays showed a partial reduction, and the splint was not adequate to maintain stability due to the instability of the pattern and the size of the patient's leg. It was my recommendation to proceed with surgical stabilization with an open reduction and internal fixation versus external fixation, based on the soft tissue envelope exam in the OR. I reviewed the risk, benefits, and alternatives to this in detail, along with my PA. After our discussion, the patient demonstrated a good understanding, asked appropriate questions, and was desiring to proceed with surgery as we had recommended. Informed consent was obtained in the preoperative holding area. Description of Procedure On the day of surgery, the patient was greeted in the preoperative holding area. The informed consent was reviewed and confirmed by myself and the patient. The patient identified the surgical site and was marked by me. The patient was then turned over to anesthesia. Anesthesia performed a regional anesthetic block with excellent effect. Patient was then taken to the operating room and placed upon the OR table. Anesthesia was induced. The airway was secured. A 3 blanket bump was placed under the ipsilateral hip. The bone foam was placed onto the operative extremity and fixed to the table. All bony prominences well- padded. A nonsterile tourniquet placed on the operative thigh. The extremity then prepped and draped in usual sterile fashion for ankle fracture surgery. Surgical timeout was called by the circulating nurse and verified all present. Antibiotics had been infused and equipment was available and functional. Adequate fluoroscopic views were available. Surgery was initiated by exsanguinating the extremity with the Esmarch bandage and inflating the tourniquet to 250 mmHg. Total tourniquet time was less than 90 minutes. The medial malleolus fracture was approached first. A linear incision just anterior to the saphenous vein was made. Soft tissue dissection was carried out using dissection scissors. The fracture was gapped open from proximal to distal to thoroughly irrigate the fracture debris. The joint was inspected. There were no obvious loose fragments. Soft tissue margins were developed sharply on all the cortical keys. A oversize load pilot escort hole was made approximately to place a giyad-cy-gdqgh clamp which was then used at the distal aspect of the fragment to reduce it under direct visualization. Fluoroscopy was used to ensure adequate joint reduction. 2 malleolar screws were chosen for the fixation. Provisional pins were placed and evaluated under fluoroscopy. The near cortex was drilled using the cannulated bit. Two 4.0 cannulated long threaded malleolar screws were placed a 50 mm length. The site was thoroughly irrigated. We then directed attention to the lateral malleolus. Medial malleoli are fracture line and the longitudinal skin incision along the fibular shaft was made. Subcutaneous dissection was carried out using Bovie electrocautery for hemostasis. Subcutaneous dissection was conducted using Metzenbaum scissors with caution for the nearby superficial peroneal nerve. The nerve was identified in the anterior skin flap and mobilized. Fascia was incision was made posterior to the nerve with a large muscle sleeve to protect it. The fibula is easily palpable through the fascia and opened up through the retinacula to reveal the periosteum and hematoma. The hematoma was evacuated using sharp dissection and thorough irrigation. The bone ends were exposed. The cortical keys were exposed using 2 mm dissection along the margins using a knife. Fracture reduction clamps were then used to manipulate the fibula. Direct with reduction was able to be achieved. [Interfragmentary screw fixation was performed with 3.5mm cortical screw. This achieved good purchase. This allowed us remove all the clamps. Fluoroscopy was used to determine plate length, and followed by plate position. Once the plate was adequately positioned it was fastened to bone using cortical screws, ensuring appropriate plate alignment. Distal fixation was achieved with locking screws. Attention was then directed to proximal screws to complete fixation of the plate to bone. The fracture reduction and plate position was then evaluated thoroughly on fluoroscopy in multiple views. A dorsiflexion external rotation force was then placed to evaluate the syndesmosis, which appears stable. We then thoroughly irrigated the surgical sites. We then began closure after thorough irrigation. Hemostasis was adequate. 0 Vicryl suture was used to approximate periosteum and muscle fascia around f ibular plate and the medial malleolus fracture line. Deep fascial tissue was approximated underneath the dermis to close down the wound using 0 Vicryl suture. 3-0 Vicryl sutures in the dermis and the final skin closure with chapis. The medial malleolar wound was closed with interrupted 3-0 Vicryl suture in the deep dermal layer followed by chapis. Wound was dressed with sterile Xeroform, gauze, ABD and contained by web roll. The limb was placed in a standard posterior ankle splint that was adequately padded. Patient was turned over anesthesia, extubated in the operating without complication, and transported to the PACU in stable condition. Disposition: The patient will be nonweightbearing for 6 weeks and follow-up in 10 to 14 days for wound check and advancement into a controlled active motion boot. Heel touch weightbearing can be used for standing, pivoting, transferring in the controlled active motion boot. Ankle range of motion can begin once the wound is healed and the chapis removed at the 2-week postop. Routine postoperative pain management was prescribed. I recommended daily aspirin for DVT prophylaxis. Physician assistant quality manager attestation: Alphonso Miguel PA-C was present and scrubbed for the duration of the case, which was essential to prepping/draping, patient positioning, retraction, and assistance with wound closure. The skilled assistance of the PA was necessary for managing the body habitus, retraction, fracture reduction and assistance with drilling and placement of hardware. I attest to the content of the Intraoperative Record and any orders documented therein. Any exceptions are noted below. I attest to the content of the Intraoperative Record and any orders documented therein. Any exceptions are noted below.
[2024-08-19] MEDS ORDERED: oxyCODONE HCL IR 5 MG TAB (IMMEDIATE RELEASE) PO PRN ×2 (19:57)
[2024-08-19] MEDS: ACETAMINOPHEN 500 MG TAB PO SCH (20:19)
[2024-08-19] MEDS: INSULIN ASPART PER UNIT CHARGE SC SCH ×2 (20:19→20:31)
[2024-08-19] MEDS: ceFAZolin 2000MG 2,000 MG/15 ML SYR IV SCH (23:05)
[2024-08-20 03:19] VITALS: PULSE 86; TEMP 99.5
[2024-08-20] MEDS ORDERED: TRANEXAMIC ACID / 0.7% NACL 1,000 MG/100 ML BAG IV SCH (06:00)
[2024-08-20] MEDS ORDERED: ceFAZolin 3000MG 3,000 MG/72.5 ML BAG IV SCH (06:00)
--- NOTE | 2024-08-20 06:46 | Electrocardiogram Report ---
Test Reason : Blood Pressure : */* mmHG Vent. Rate : 82 BPM Atrial Rate : 82 BPM P-R Int : 166 ms QRS Dur : 94 ms QT Int : 396 ms P-R-T Axes : 46 78 48 degrees QTcB Int : 462 ms Normal sinus rhythm Normal ECG When compared with ECG of 10-Aug-2020 09:07, No significant change was found Confirmed by Fabian Albert ([id number]) on 08/20/2024 6:46:30 AM Referred By: REFERRED SELF Confirmed By: Fabian Albert
--- NOTE | 2024-08-20 07:05 | Fluoroscopy Report ---
FL ankle LT min 3V RTN CLINICAL HISTORY: Left ankleacute fracture or dislocation of the left ankle COMPARISON STUDY: Radiographs 08/19/2024 FLUOROSCOPY TIME: 55.0 seconds FLUOROSCOPY IMAGES: 8 EXPOSURE DOSE: 2.70 mGy FINDINGS: ORIF hardware fixates the acute distal tibial and fibular fracture deformities. There is im proved alignment. Expected postoperative soft tissue swelling with deep tissue air. The visualized lopez rdware appears intact. No unexpected opaque foreign bodies. IMPRESSION: Fluoroscopic assistance as above. ACT 112: Negative or not required by law. Electronically signed by: Kalyan De Jesus M.D. 08/20/2024 7:04 AM
[2024-08-20 07:19] VITALS: BP 141/75; RESP 17; O2SAT 96
[2024-08-20 08:11] LABS: Hematocrit (blood only) 39.4 % (42.0-52.0); Hemoglobin 13.3 g/dl (14.0-18.0); Immature Granulocytes # (auto) 0.02 K/uL (0.01-0.20); Immature Granulocytes % (auto) 0.2 %; Lymphocytes # (auto) 1.26 K/uL (1.20-3.40); Lymphocytes % (auto) 13.1 %; Mean Corpuscular Hemoglobin 28.1 pg (25.0-34.0); Mean Corpuscular Hgb Conc 33.8 g/dL (32.0-36.0); Mean Corpuscular Volume 83.1 fL (80.0-100.0); Monocytes # (auto) 1.04 K/uL (0.11-0.59); Monocytes % (auto) 10.8 %; Neutrophils # (auto) 7.29 K/uL (1.40-6.50); Neutrophils % (auto) 75.9 %; Platelet Count 218 K/uL (130-400); RDW Coefficient of Variation 14.3 % (11.5-14.5); RDW Standard Deviation 43.3 fL (36.4-46.3); Red Blood Count 4.74 M/uL (4.70-6.10); White Blood Count 9.61 K/ul (4.8-10.8)
[2024-08-20 08:14] LABS: Estimated Average Glucose 143 mg/dl; Hemoglobin A1C 6.6 % (4.5-5.6)
[2024-08-20] MEDS: ASPIRIN 325 MG ECTAB PO SCH (08:23)
[2024-08-20 08:37] LABS: BUN Creatinine Ratio 16.3 (10-20); Calcium 8.9 mg/dl (8.6-10.3); Creatinine Clr Calc Pharmacy 90.5 ml/min; Potassium 4.1 mmol/L (3.5-5.1)
--- NOTE | 2024-08-20 09:53 | Orthopedic Progress Note ---
Date of Service August 20, 2024 Assessment & Plan (1) Closed fracture dislocation of left ankle joint: Assessment: Status post left ankle open reduction internal fixation Plan: Overall, he is doing quite well today with good pain control to the left ankle. He will work with physical therapy today to work on ambulation using crutches to remain nonweightbearing to the left lower extremity. He is on aspirin for DVT prophylaxis. If he is able to ambulate well with physical therapy, from an orthopedic standpoint he should be cleared for discharge. He was instructed to not remove the splint until he is seen in the office in 2 weeks. He should continue restrictions modified to his apparent discomfort left ankle. As for the rest, ice, and elevation procedures. Follow-up with Dr. Haji in 2 weeks for continued postsurgical care. Nahomi Rodriguez was seen and evaluated today at bedside. He is status post day 1 of a left open reduction internal fixation performed by Dr. Haji. He notes that he is doing quite well today with good pain control to the left ankle. He is currently immobilized in a posterior leg splint. He notes that his pain is well-controlled at this point. He denies any concerns with surgical incision site. Denies any active bleeding, discharge, or signs of infection. He denies any low back pain, proximal extremity pain, numbness/ting, or paresthesias. He denies any other concerns today. Review of Systems All systems reviewed & are unremarkable except as noted in HPI & below. Physical Exam . Focused exam of the left ankle shows splint intact with no signs of active bleeding, discharge, or signs of infection. Able to bend at the knee with flexion and extension. Able to wiggle all 5 toes. Normal sensation. Neurovascular intact. Results & Data Results & Data Laboratory Results . Diagnostic Findings . PG Care Time/CCT Total # of Minutes Spent Total Time Spent with Patient: Total time spent is greater than 50% in coordination of care (as documented) at patient's floor/unit and/or counseling patient: Coding Level of Care Code 73778 Post Operative Follow-Up Diagnoses Closed fracture dislocation of left ankle, initial encounter S82.892A Encounter type: initial encounter (1) Closed fracture dislocation of left ankle joint Encounter type: initial encounter Qualified Code(s): S82.892A - Other fracture of left lower leg, initial encounter for closed fracture
--- NOTE | 2024-08-20 13:53 | Discharge Summary ---
Discharge Summary Date of Service August 20, 2024 Principal Dx & Hospital Course #1 = Principal Diagnosis (1) Closed fracture dislocation of left ankle joint: s/p mechanical fall slipping in snow 08/19. Postoperative day #1 after open reduction internal fixation of the left ankle fracture. Management per orthopedics. Home today, August 20, with a walker. Continue aspirin for DVT prophylaxis. Follow-up as an outpatient in orthopedic office in 2 weeks (2) Hypertension: Stable. Continue current medical management (3) Chronic kidney disease, stage 3a: Stable. Monitor intake and output. Serial labs (4) Prediabetes: Diabetic diet. Sliding scale insulin coverage as needed. (5) Chronic anemia: Stable. No indication for transfusion. No melena or hematochezia. (6) Morbid obesity with BMI of 40.0-44.9, adult: Significant weight loss recommended Plan Home today, August 20, with a walker. He will follow-up with orthopedic surgery in 2 weeks Admission HPI Per Admitting Provider Patient is a 49-year-old male with a past medical history of hypertension, stage IIIa CKD, anemia, prediabetes, vitamin B12 deficiency, not currently on any home medications. He is being admitted for a left ankle fracture that will require operative management by orthopedics. Orthopedics team consulted. Patient seen at bedside and stated that he works for [employer] and got called into work to pull out today. When he was trying to get into his truck he slipped on the snow and heard a pop and crack in his ankle. When he was laying there his pain was a 1/10. When he tried to stand up and bear weight on the foot, his pain was severe. He is up-to-date on his tetanus vaccine. He denies head strike or loss of consciousness; denies dyspnea, chest pain, dizziness prior to fall. He is not on a blood thinner. His last meal was last night at 7 or 8 PM in which she had a hoagie. He has not had anything to drink today. He is planning to grab something to eat while he was on the job today. He states his pain is currently 0 out of 10 after IV pain medication. Patient denies headache, dizziness, lightheadedness, dyspnea, chest pain, abdominal pain, nausea, vomiting, diarrhea, numbness, tingling. When discussing his past medical history, he stated he used to be on amlodipine, losartan, and chlorthalidone but stopped taking these a few months ago. He also stated he used to have kidney disease but has been stable and does not follow with nephrology. He does not use nicotine products or drink alcohol. He denies previous VTE. He does not use oxygen at baseline, no CPAP/BiPAP. He did not take any home medications this morning because he is not on any. He occasionally takes [id number] Prilosec. He wishes to be full code at this time. Discharge Exam General-alert and oriented x3, no fever, no chills. Overweight HEENT-head atraumatic and normocephalic, pupils equal and reactive to light, extraocular muscles intact Neck-no lymphadenopathy or thyromegaly, trachea midline Chest-clear to auscultation. No rales, wheezing or rhonchi Cardiac-regular rate and rhythm, normal S1 and S2 Abdomen-normal bowel sounds, no hepatosplenomegaly Extremities-left ankle is heavily bandaged Neuro-cranial nerves II through XII intact, motor and sensory function within normal limits, strength symmetrical, no focal deficits Psych-normal affect, normal mood Discharge Plan Discharge Items Patient Disposition: Home - Self-Care Reason For Visit: SLIPPED AND FELL, L ANKLE PAIN Discharge Diagnosis: LEFT ANKLE FRACTURE-DISLOCATION, status post open reduction internal fixation Activity: Per Instructions section Weightbearing: Left non-weightbearing Non-emergency contact: Surgeon Call non-emergency contact if: your pain is not controlled and your temperature is above 101 Follow-up/Referrals: Lei Cooper CRNP [Primary Care Provider] - Wilson Haji MD [Surgeon] - Diet: Carb Consistent or DM2 Addtl Attending Provider Instructions: Wilson Haji M.D. [facility] POSTOPERATIVE INSTRUCTIONS ANKLE FRACTURES SPLINT/WOUND CARE: Leave your splint in place and keep the area clean and dry. Your splint will be taken down at your postop clinic visit. Do not remove it yourself. Do not walk on your splint. You should be completely non-weightbearing. Use your crutches as instructed. If the splint becomes wet, dirty, uncomfortable, or loose, please call the Orthopedic Clinic ([phone]) to arrange to be evaluated in the [facility]. Please call the Ortho Clinic if you have any questions or concerns PAIN CONTROL: Elevation is your best friend. Elevate the affected extremity above the level of your heart. Swelling is simply fluid. Elevation will allow the fluid to run down hill, reduce swelling, and decrease pain. The affected extremity should be continuously elevated for the first 2-3 days, with the exception of bathroom, hygiene, etc. You may be prone to swelling for several weeks, or until you return to normal function with your foot/ankle. Ice will help with pain and swelling. Place ice over the front of your ankle. There is abundant padding so it may take a while to feel like its working. Be sure to not let the ice leak into your splint. MEDICATIONS: 1. Oxycodone (OxyIR) 1-2 tablet(s) orally every 4 hours for pain as needed. Use with Tylenol. Begin tapering OxyIR as soon as possible: reduce from 2 to 1 pills per dose, then spread out the doses over greater time intervals, then try to use only for therapy or for comfort while sleeping. Continue to use regular Tylenol until pain subsides. 2. Tylenol (325mg): 3 tablets every 8 hours orally. Regular dosing of Tylenol is an important part of your baseline pain control. Do not taper Tylenol until you have successfully tapered off of regular OxyIR. Do not take more than 3000mg of Tylenol per day. 3. Zofran: 1 tablet orally every 6 hours as needed for nausea related to anesthesia, pain, and narcotic medications. 4. Colace (100mg): take 1-2 tabs twice daily to avoid constipation from OxyIR or other narcotics. OVER THE COUNTER 5. Aspirin (325mg): Blood clots can be caused by fracture and immobility. Ankle fractures have a low risk of blood clots, but one aspirin tablet per day starting the day after surgery may reduce whatever minimal risk there is even further. The risk of clots goes down significantly after 30 days or as you return to normal mobility. WHEN TO CALL. If you develop any of the following symptoms, please contact the [facility] Orth[facility] at [phone] or the Emergency room (after hours): Temperature greater than 101 taken twice, difficulty breathing, bleeding, fever and chills, increased pain unrelieved by pain meds, uncomfortable cast or splint, or any other concerns. Pending Studies at Discharge: No Stand-Alone Forms: My [facility], Smoking Cessation Medications and DC Order Prescriptions: New aspirin [Ecotrin] 325 mg Tablet,Delayed Release (Dr/Ec) 325 mg PO DAILY Qty: 0 0RF No Action No Known Home Medications Discharge Orders: Discharge Order (Routine); Ordered 08/20/24 Ordered By: Oziel Velasquez/Other Patient Handouts: A1C, 5 Steps for Eating Healthier, Exercise: Why Fitness Matters Admission Data Admit Date/Time: 08/19/24 11:42 Attending Provider: Oziel Aranda Admit Provider: Oziel Aranda Primary Care Provider: Lei Cooper Other Providers: Wilson Haji; Oziel Aranda Hospital Stay Data Consultations 08/19/24 11:22 Consult Orthopedic Surgery Stat ED Decision to Admit Stat Procedures Performed Operation Date: 08/19/24 08:20 Actual Procedures p Left Ankle Open Reduction Internal Fixation(Left) - Wilson Haji MD Diagnostic Imagining Performed 08/19/24 14:30 FL ankle LT min 3V RTN Routine 08/19/24 16:28 US - OR guided needle placemen Stat Pending Results Patient Have Any Pending Studies at Discharge: No Discharge Instructions Given to Patient (Per Discharging Provider) Wilson Haji M.D. [facility] Orthopedic Surgery POSTOPERATIVE INSTRUCTIONS ANKLE FRACTURES SPLINT/WOUND CARE: Leave your splint in place and keep the area clean and dry. Your splint will be taken down at your postop clinic visit. Do not remove it yourself. Do not walk on your splint. You should be completely non-weightbearing. Use your crutches as instructed. If the splint becomes wet, dirty, uncomfortable, or loose, please call the Orthopedic Clinic ([phone]) to arrange to be evaluated in the [facility]. Please call the Ortho Clinic if you have any questions or concerns PAIN CONTROL: Elevation is your best friend. Elevate the affected extremity above the level of your heart. Swelling is simply fluid. Elevation will allow the fluid to run down hill, reduce swelling, and decrease pain. The affected extremity should be continuously elevated for the first 2-3 days, with the exception of bathroom, hygiene, etc. You may be prone to swelling for several weeks, or until you return to normal function with your foot/ankle. Ice will help with pain and swelling. Place ice over the front of your ankle. There is abundant padding so it may take a while to feel like its working. Be sure to not let the ice leak into your splint. MEDICATIONS: 1. Oxycodone (OxyIR) 1-2 tablet(s) orally every 4 hours for pain as needed. Use with Tylenol. Begin tapering OxyIR as soon as possible: reduce from 2 to 1 pills per dose, then spread out the doses over greater time intervals, then try to use only for therapy or for comfort while sleeping. Continue to use regular Tylenol until pain subsides. 2. Tylenol (325mg): 3 tablets every 8 hours orally. Regular dosing of Tylenol is an important part of your baseline pain control. Do not taper Tylenol until you have successfully tapered off of regular OxyIR. Do not take more than 3000mg of Tylenol per day. 3. Zofran: 1 tablet orally every 6 hours as needed for nausea related to anesthesia, pain, and narcotic medications. 4. Colace (100mg): take 1-2 tabs twice daily to avoid constipation from OxyIR or other narcotics. OVER THE COUNTER 5. Aspirin (325mg): Blood clots can be caused by fracture and immobility. Ankle fractures have a low risk of blood clots, but one aspirin tablet per day starting the day after surgery may reduce whatever minimal risk there is even further. The risk of clots goes down significantly after 30 days or as you return to normal mobility. WHEN TO CALL. If you develop any of the following symptoms, please contact the [facility] Orth[facility] at [phone] or the Emergency room (after hours): Temperature greater than 101 taken twice, difficulty breathing, bleeding, fever and chills, increased pain unrelieved by pain meds, uncomfortable cast or splint, or any other concerns. Total Time Total Time Spent Total Time Spent (In Minutes): 45 minutes Coding Level of Care Code 69098 INP/OBS DISCH >30 MIN Diagnoses Closed fracture dislocation of left ankle, initial encounter S82.892A Encounter type: initial encounter Hypertension I10 Chronic kidney disease, stage 3a N18.31 Prediabetes R73.03 Chronic anemia D64.9 Morbid obesity with BMI of 40.0-44.9, adult E66.01; Z68.41
== END 2024-08-20 15:29 | disposition home or self-care (01) | DRG 493 ==
LOC: ED 09:01 → EDINP 11:42 → 3N 12:51